=== PATIENT | female | born 1980 | race Caucasian/White ===

== ENCOUNTER 2018-11-27 10:39 | Emergency (ER) | payer OTHER ==
[~2018-11-27] VITALS: Ht 162.6 cm; Wt 55.8 kg
[2018-11-27] MEDS ORDERED: MORPHINE SULFATE 4 MG/1 ML DISP.SYRIN IM ONE (11:15)
[2018-11-27] MEDS ORDERED: MORPHINE SULFATE 4 MG/1 ML DISP.SYRIN ONE (11:16)
--- NOTE | 2018-11-27 11:43 | NUR ---
Patient discharged to home in stable conditon. Written and verbal after care instructions given. Patient verbalizes understanding of instructions.pt walks in steady gait . pt accompanied by mother. pt not driving./
[2018-11-27 11:44] VITALS: BP 132/79
== END 2018-11-27 11:45 | disposition home or self-care (01) ==
LOC: ER 10:39
DX: S06.0X0A Concussion without loss of consciousness, initial encounter (principal); S19.9XXA Unspecified injury of neck, initial encounter; F17.290 Nicotine dependence, other tobacco product, uncomplicated; W01.198A Fall on same level from slipping, tripping and stumbling with subsequent striking against other object, initial encounter; Y93.89 Activity, other specified; Y92.89 Other specified places as the place of occurrence of the external cause; Y99.8 Other external cause status
CPT/HCPCS: 96372; 99283; 99406; J2270; A4663